=== PATIENT | male | born 1985 | race Caucasian/White ===

== ENCOUNTER 2021-08-14 19:37 | Emergency (ER) | payer MEDICAID, SELFPAY ==
--- NOTE | ~2021-08-14 | XR_ITS ---
EXAMINATION: XR CHEST CLINICAL INFORMATION: Chest pain COMPARISON: None. TECHNIQUE: AP portable upright view of the chest FINDINGS: Lungs are clear. No consolidation, pneumothorax, or pleural effusion. Cardiac and mediastinal contours are normal. Pulmonary vasculature is unremarkable. Osseous structures are unremarkable. XR/XR chest 1V IMPRESSION: No acute cardiopulmonary findings
--- NOTE | 2021-08-14 19:44 | ED.CHESTPAIN ---
HPI - Chest Pain General Chief Complaint: Chest Pain Stated Complaint: CP Time Seen by Provider: 08/14/21 19:42 Source: patient Mode of arrival: EMS Limitations: no limitations History of Present Illness HPI narrative: Patient history of anxiety and depression no known coronary artery disease came from psych unit for mid chest pain started about 3 hours ago felt heavy in the chest, patient had a stressful day today but never had chest pain like this felt heaviness with sweating no nausea no vomiting no shortness of breath patient was given 4 baby aspirin by EMS prior to arrival blood pressure was elevated 210/106 Related Data Previous Rx's Medication Instructions Recorded aspirin 81 mg tablet,delayed 81 mg PO DAILY #30 tab 08/14/21 release (Ecotrin Low Strength) Allergies Allergy/AdvReac Type Severity Reaction Status Date / Time articaine [From Septocaine] Allergy Severe Unresponsiv Verified 08/14/21 20:20 e epinephrine [From Septocaine] Allergy Severe Unresponsiv Verified 08/14/21 20:20 e Review of Systems Review of Systems: Yes all other systems are reviewed and are negative [facility] Social History Social History Alcohol intake: never Patient Tobacco Use Status: Former Tobacco user Use of substances other than those prescribed or required for medical reasons: No Advance Directives: No Advance Directives Information Provided: No Physical Exam Vital Signs: Vital Signs: Last Vital Signs Temp 98.2 F 08/14/21 22:23 Pulse 73 08/14/21 22:23 Resp 15 08/14/21 22:23 BP 123/68 08/14/21 22:23 Pulse Ox 97 08/14/21 22:23 BMI result Body Mass Index 33.5 Appearance: Alert. Oriented X3. No acute distress. Eyes: PERRLA, No Nystagmus ENT: Pharynx normal. Oral Mucosa moist Neck: Normal inspection. Neck supple. CVS: Normal heart rate and rhythm. Pulses normal. Respiratory: No respiratory distress. Equal air entry bilateral, no wheezing/rales/rhonchi Abdomen: Soft and nontender. Bowel sounds are present, no mass palpable, no CVA tenderness Skin: Skin warm and dry. Normal skin color. Normal skin turgor. Extremities: No lower extremity edema. No calf tenderness Neuro: Oriented X 3. No motor deficit. MDM - Chest Pain MDM Narrative Medical decision making narrative: Patient with chest pain for about 8 hours duration 2 sets of cardiac enzymes-2 EKGs also negative patient has anxiety and stressed out when she was talking to his girlfriend. Likely the cause of pain is noncardiac. Will discharge patient home advised to follow-up with cardiology for further workup and also advised to take baby aspirin daily heart score of 0 Lab Data Result diagrams: 08/14/21 20:06 08/14/21 20:06 Labs: Lab Results 08/14/21 08/14/21 08/14/21 Range/Units 20:06 20:06 20:06 WBC 11.4 H (4.8-10.8) X10*3/uL RBC 5.41 (4.60-5.80) X10*6/uL Hgb 16.0 (14.0-18.0) g/dl Hct 48.1 (42.0-52.0) % MCV 88.9 (80.0-98.0) fL MCH 29.6 (27.0-33.0) pg MCHC 33.3 (31.0-36.0) g/dl RDW 12.3 (11.0-16.0) % Plt Count 255 (160-400) X10*3/uL MPV 10.3 (9.4-12.4) fL Immature Gran % (Auto) 0.6 H (0.0-0.4) % Neut % (Auto) 52.6 (45-73) % Lymph % (Auto) 37.8 (20-40) % [place] % (Auto) 6.9 (2-11) % Eos % (Auto) 1.8 (0-4) % Baso % (Auto) 0.3 (0-2) % Lymph # (Auto) 4.3 (1.2-4.9) X10*3/uL [place] # (Auto) 0.8 (0.1-1.2) X10*3/uL Eos # (Auto) 0.2 (0.0-0.4) X10*3/uL Baso # (Auto) 0.0 (0.0-0.2) X10*3/uL Abs Immat Gran (auto) 0.07 H (0.00-0.03) X10*3/uL Absolute Neuts (auto) 6.0 (2.0-8.3) x10*3/uL Absolute Nucleated RBC 0.000 (0.0-0.012) X10*3/uL Nucleated RBC % (auto) 0.0 (0.0-0.2) /100WBC Smear Tech's Comments VERIFIED PT 11.8 (9.9-13.0) SEC INR 1.0 (0.9-1.1) APTT 34.7 (24.1-38.0) SEC Sodium 137 (135-145) mmol/L Potassium 4.5 (3.3-5.1) mmol/L Chloride 103 (96-108) mmol/L Carbon Dioxide 28 (22-29) mmol/L Anion Gap 11 L (12-20) BUN 14 (9-16) mg/dL Creatinine 0.95 (0.5-1.4) mg/dL Estim Creat Clear Calc 132.3 Estimated GFR > 60 Random Glucose 166 H (60-115) mg/dL Calcium 9.5 (8.4-10.2) mg/dL Total Bilirubin 0.3 (0.0-1.0) mg/dL AST 19 (5-37) U/L ALT 51 H (0-40) U/L Alkaline Phosphatase 72 (39-117) U/L Troponin I High Sens (<3.5-35.0) ng/L Total Protein 6.8 (6.5-8.0) g/dL Albumin 4.1 (3.5-5.0) g/dL 08/14/21 08/14/21 Range/Units 20:06 21:52 WBC (4.8-10.8) X10*3/uL RBC (4.60-5.80) X10*6/uL Hgb (14.0-18.0) g/dl Hct (42.0-52.0) % MCV (80.0-98.0) fL MCH (27.0-33.0) pg MCHC (31.0-36.0) g/dl RDW (11.0-16.0) % Plt Count (160-400) X10*3/uL MPV (9.4-12.4) fL Immature Gran % (Auto) (0.0-0.4) % Neut % (Auto) (45-73) % Lymph % (Auto) (20-40) % [place] % (Auto) (2-11) % Eos % (Auto) (0-4) % Baso % (Auto) (0-2) % Lymph # (Auto) (1.2-4.9) X10*3/uL [place] # (Auto) (0.1-1.2) X10*3/uL Eos # (Auto) (0.0-0.4) X10*3/uL Baso # (Auto) (0.0-0.2) X10*3/uL Abs Immat Gran (auto) (0.00-0.03) X10*3/uL Absolute Neuts (auto) (2.0-8.3) x10*3/uL Absolute Nucleated RBC (0.0-0.012) X10*3/uL Nucleated RBC % (auto) (0.0-0.2) /100WBC Smear Tech's Comments PT (9.9-13.0) SEC INR (0.9-1.1) APTT (24.1-38.0) SEC Sodium (135-145) mmol/L Potassium (3.3-5.1) mmol/L Chloride (96-108) mmol/L Carbon Dioxide (22-29) mmol/L Anion Gap (12-20) BUN (9-16) mg/dL Creatinine (0.5-1.4) mg/dL Estim Creat Clear Calc Estimated GFR Random Glucose (60-115) mg/dL Calcium (8.4-10.2) mg/dL Total Bilirubin (0.0-1.0) mg/dL AST (5-37) U/L ALT (0-40) U/L Alkaline Phosphatase (39-117) U/L Troponin I High Sens < 3.5 < 3.5 (<3.5-35.0) ng/L Total Protein (6.5-8.0) g/dL Albumin (3.5-5.0) g/dL Scores Heart Score History: -0- slightly suspicious ECG: -0- normal Age: -0- < or = 45 Risk factory: -0- no risk factors known Troponin: -0- < or = normal limit Score: 0 Risk: 1.7% Discharge Plan Discharge Clinical Impression: Chest pain Patient Disposition: Home, Self-Care Instructions: Chest Pain (ED) Additional Instructions: Take baby aspirin daily For your PCP for further evaluation including stress test Report to the ER if worsening of the chest pain Prescriptions: New aspirin [Ecotrin Low Strength] 81 mg tablet,delayed release (DR/EC) 81 mg PO DAILY Qty: 30 0RF Interventions: ED Discharge Assessment Last Done: 08/15/21 00:13 Discharge Date/Time: 08/15/21 00:20
[2021-08-14 19:47] VITALS: BP 200/110; PULSE 70; BMI 33.5
--- NOTE | 2021-08-14 19:54 | ECG_ITS ---
Test Reason : CHEST PAIN Blood Pressure : / mmHG Vent. Rate : 069 BPM Atrial Rate : 069 BPM P-R Int : 124 ms QRS Dur : 090 ms QT Int : 374 ms P-R-T Axes : 051 022 020 degrees QTc Int : 400 ms Normal sinus rhythm Normal ECG No previous ECGs available Referred By: Rubin Gold Electronically Signed By:JARED YANG MD
[2021-08-14 20:15] LABS: Basophils Percent Auto 0.3 % (0-2); Eosinophils Absolute Auto 0.2 X10*3/uL (0.0-0.4); Eosinophils Percent Auto 1.8 % (0-4); Hematocrit 48.1 % (42.0-52.0); Imm Gran Abs Auto 0.07 X10*3/uL (0.00-0.03); Imm Gran Pct Auto 0.6 % (0.0-0.4); Lymphocytes Absolute Auto 4.3 X10*3/uL (1.2-4.9); Lymphocytes Percent Auto 37.8 % (20-40); MANUAL DIFF FLAG SCAN; Mean Corpuscular HGB Conc 33.3 g/dl (31.0-36.0); Mean Corpuscular Hemoglobin 29.6 pg (27.0-33.0); Mean Corpuscular Volume 88.9 fL (80.0-98.0); Mean Platelet Volume 10.3 fL (9.4-12.4); Monocytes Absolute Auto 0.8 X10*3/uL (0.1-1.2); Monocytes Percent Auto 6.9 % (2-11); Neutrophils Percent Auto 52.6 % (45-73); Platelet Count 255 X10*3/uL (160-400); Red Blood Count 5.41 X10*6/uL (4.60-5.80); Red Cell Distribution Width 12.3 % (11.0-16.0); SCAN SMEAR FLAG 1; White Blood Count 11.4 X10*3/uL (4.8-10.8)
[2021-08-14] MEDS: Nitroglycerin 2 % Oint 1 GM Packet 1 INCH TRANSDERMA (20:17)
[2021-08-14 20:20] VITALS: BP 130/85; PULSE 72; RESP 16; TEMP 37; O2SAT 99
[2021-08-14 20:20] LABS: Prothrombin Time 11.8 SEC (9.9-13.0)
[2021-08-14 20:23] LABS: Partial Thromboplastin Time 34.7 SEC (24.1-38.0)
--- NOTE | 2021-08-14 20:29 | PC.NURSE ---
Addendum entered by Gunner Barbosa RN 08/15/21 00:14: Ousmane is discharged at this time. Ousmane planned to take a private vehicle transport back to [facility] via family memebr who arrived to see him in the ED. He had arrived to ED via EMS with a Section 21 in EMS hand. I spent over an hour attempting to get ahold of any staff members at [facility]. I called multiple phone numbers listed on the website, left three voice mails and nobody ever returned a call. our Care Team staff member then provided me with a phone number to give a nurse to nurse report - a direct line, she was informed by [facility]. So, I called that number and it rang for approximately ten minutes before somebody answered that number. They then transferred me to another [facility] and i was eventually able to give a nursing report. I gave nursing report to Mirta at [facility] who is aware that pt is now returning via ambulance. Original Note: Ousmane presents alert and oriented x 3 via EMS from [facility] where he is being treated for depression related to the recent loss of his to pancreatic cancer. He states he has been having chest pain throughout the day today, was given Tums while at [facility] without any relief. He became hypertensive, diaphoretic and pain increased, prompting staff to call 911. On arrival here his chest pain is 4/10. SR noted on bedside monitor, rate 70's. Skin pale/warm/dry. Respirations non-labored, he denies SOB, he speaks in full sentences, no cyanosis. No nausea. No vomiting. He makes eye contact with Rn and is calm and cooperative. He admits to depression and anger management but denies current SI/HI - of note, he does mention that when he first received news of his 's passing he contemplated suicide and implemented a plan to drive off of a bridge. Again, he currently denies SI/HI.
[2021-08-14 20:34] LABS: Alanine Aminotransferase 51 U/L (0-40); Albumin Level 4.1 g/dL (3.5-5.0); Alkaline Phosphatase 72 U/L (39-117); Anion Gap 11 (12-20); Aspartate Amino Transferase 19 U/L (5-37); Bilirubin Total 0.3 mg/dL (0.0-1.0); Blood Urea Nitrogen 14 mg/dL (9-16); Calcium 9.5 mg/dL (8.4-10.2); Carbon Dioxide 28 mmol/L (22-29); Chloride 103 mmol/L (96-108); Creatinine Clr Calc Pharmacy 132.3; Estimated Glomerular Filt Rate > 60; Glucose Random 166 mg/dL (60-115); Potassium 4.5 mmol/L (3.3-5.1); Sodium 137 mmol/L (135-145); Total Protein 6.8 g/dL (6.5-8.0)
[2021-08-14 20:40] LABS: Troponin-I High Sensitivity < 3.5 ng/L (<3.5-35.0)
[2021-08-14 20:41] LABS: SLIDE REVIEW VERIFIED
[2021-08-14 22:23] VITALS: BP 123/68; PULSE 73; RESP 15; TEMP 36.8; O2SAT 97
--- NOTE | 2021-08-14 22:23 | ECG_ITS ---
Test Reason : REPEAT Blood Pressure : / mmHG Vent. Rate : 060 BPM Atrial Rate : 060 BPM P-R Int : 106 ms QRS Dur : 088 ms QT Int : 396 ms P-R-T Axes : 024 016 006 degrees QTc Int : 396 ms Sinus rhythm with short DE Nonspecific T wave abnormality Abnormal ECG When compared with ECG of 14-AUG-2021 20:13, No significant change was found Referred By: Rubin Gold Electronically Signed By:JARED YANG MD
[2021-08-14 22:41] LABS: Troponin-I High Sensitivity < 3.5 ng/L (<3.5-35.0)
--- NOTE | 2021-08-15 00:03 | MHC.CARE ---
CARE team was contacted by ED charge nurse re: pt who was sent from [facility] on a Section 21 for medical evaluation of cardiac complaints. This designer/writer contacted [facility] to confirm the status of the pt as their patient. Pt is actively a psychiatric admission to the adult unit and needs to be transported back to the facility if he is medically cleared while in the ED. This information, along with a phone number for nurse to nurse, was relayed to the main ED.
== END 2021-08-15 00:20 | disposition home or self-care (01) ==
PROVIDERS: Emergency Provider Internal Medicine
DX: R07.89 Other chest pain (principal); F41.9 Anxiety disorder, unspecified; F33.1 Major depressive disorder, recurrent, moderate; Z79.899 Other long term (current) drug therapy; Z79.82 Long term (current) use of aspirin
CPT/HCPCS: 36415; 71045; 80053; 84484; 85025; 85610; 85730; 93005; 99285